=== PATIENT | male | born 1995 | race Caucasian/White ===

== ENCOUNTER 2021-01-18 08:44 | Outpatient (REF) | payer OTHER, SELFPAY ==
[2021-01-18 09:15] LABS: COVID-19 Test Positive (Negative)
== END 2021-01-18 08:45 | disposition home or self-care (01) ==
LOC: HO.LAB 08:44
PROVIDERS: Visit Provider Internal Medicine
DX: Z20.822 Contact with and (suspected) exposure to COVID-19 (principal)
CPT/HCPCS: 36415; 87635; C9803

== ENCOUNTER 2021-02-01 14:24 | Outpatient (REF) | payer OTHER, SELFPAY | END 2021-02-01 14:25 | disposition home or self-care (01) | LOC: HO.LAB 14:24 | PROVIDERS: Visit Provider Internal Medicine | DX: Z20.822 Contact with and (suspected) exposure to COVID-19 (principal) | CPT/HCPCS: C9803; U0003; U0005 ==

== ENCOUNTER 2021-05-10 11:05 | Outpatient (REF) | payer OTHER, SELFPAY ==
[2021-05-10 11:30] LABS: COVID-19 Test Negative (Negative)
== END 2021-05-10 11:06 | disposition home or self-care (01) ==
LOC: HO.LAB 11:05
PROVIDERS: Visit Provider Internal Medicine
DX: Z20.822 Contact with and (suspected) exposure to COVID-19 (principal)
CPT/HCPCS: 36415; 87635; C9803

== ENCOUNTER 2021-08-30 10:04 | Outpatient (REF) | payer SELFPAY ==
[2021-08-30 10:29] LABS: COVID-19 Test Negative (Negative)
== END 2021-08-30 10:05 | disposition home or self-care (01) ==
LOC: HO.LAB 10:04
PROVIDERS: Visit Provider Internal Medicine
DX: Z20.822 Contact with and (suspected) exposure to COVID-19 (principal)
CPT/HCPCS: 36415; 87635; C9803

== ENCOUNTER 2025-03-27 15:34 | Emergency (ER) | payer OTHER, SELFPAY ==
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
[2025-03-27 16:17] VITALS: BP 140/96; PULSE 102; RESP 16; TEMP 36.3; O2SAT 99; BMI 43.0
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
[2025-03-27 16:51] LABS: MANUAL DIFF FLAG NO
[2025-03-27 16:53] LABS: Hematocrit 46.8 % (42.0-52.0); Hemoglobin 16.3 g/dl (14.0-18.0); Imm Gran Abs Auto 0.06 X10*3/uL (0.00-0.03); Imm Gran Pct Auto 0.6 % (0.0-0.4); Lymphocytes Absolute Auto 1.0 X10*3/uL (1.2-4.9); Mean Corpuscular HGB Conc 34.8 g/dl (31.0-36.0); Mean Corpuscular Hemoglobin 30.4 pg (27.0-33.0); Mean Corpuscular Volume 87.2 fL (80.0-98.0); NRBC Abs Auto 0.000 X10*3/uL (0.0-0.012); NRBC Pct Auto 0.0 /100WBC (0.0-0.2); Platelet Count 282 X10*3/uL (160-400); Red Blood Count 5.37 X10*6/uL (4.60-5.80); White Blood Count 9.5 X10*3/uL (4.8-10.8)
[2025-03-27] MEDS: Lidocaine HCl 4 % Topical 50 ML SOLUTION 1 APPL TOPICAL (16:53)
[2025-03-27] MEDS: Diphth,Pertus(ACell),Tet Adult 0.5 ML SYRINGE IM (16:53)
--- OUTSIDE RECORDS SUMMARY | 2025-03-27 17:03 | XMS_ITS | Clinical Summary ---
Author Organization [facility] Address [address] [place] [address] Care Team Providers Care Mapper Name Role Phone Neo Pina MD Primary Care Pr ovider Allergies Active Allergy Reactions Criticality Noted Date Comments Amoxicillin 12/05/2020 Nut - Unspecified 12/05/2020 walnuts Medications ergocalciferol (VITAMIN D-2) 1,250 mcg (50,000 unit) capsule Take 1 Capsule by mouth once a week. 06/21/2024 Active Active Problems Problem Noted Date Diagnosed Date Morbid obesity with BMI of 4 5.0-49.9, adult ([facility] V24, [facility] V28) 09/08/2024 Venous insufficiency 06/07/2024 Overview (09/08/2024): Clinically significant reflux in both legs on venous ultrasound Elevated alkaline phosphatase level 05/27/2024 Stasis dermatitis of both legs 04/26/2024 Encounters Date Type Department Care Team Description 02/03/2025 Telephone Adult Medicine [address] [phone] Neo Pina MD Headache; Fatigue from Last 3 Months Surgical History Surgery Date Site/Laterality Comments OTHER SURGICAL HISTORY PROCEDURE: DENIES PREVIOUS SURGERY Medical History Medical History Date Comments Adhd DX:ADHD Migraine headache DX:Migraine he adache Other seasonal allergic rhinitis DX:Other seasonal allergic rhinitis Family History Medical History Relation Name Comments Bipolar disorder Father Other: PTSD Father Diabetes Mother Hypertension Mother Other: venous insufficiency Mother Seizures Mother Prostate cancer Other Breast cancer Neg Hx Colon cancer Neg Hx Relation Name Status Comments Father Alive Mother Alive Other maternal uncle Social History Tobacco Use Types Packs/Day Years Used Date Smoking Tobacco: Former Smokeless Tobacco: Former Alcohol Use Standard Drinks/Week Comments Yes 0 (1 standard drink = 0.6 oz pur e alcohol) Sex and Gender Information Value Date Recorded Sex Assigned at Not on file Legal Sex Male 12:37 PM EST Gender Identity Not on file Sexual Orientation Not on file Obstetrics History Last Filed Vital Signs Vital Sign Reading Time Taken Comments Blood Pressure 130/84 04/26/2024 4:44 PM EDT Pulse 90 04/26/2024 4:44 PM EDT Temperature - - Respiratory Rate - - Oxygen Saturation - - Inhaled Oxygen Concentration - - Weight 141 kg (310 lb) 04/26/2024 4:44 PM EDT Height 176.5 cm (5' 9.5 ) 04/26/2024 4:44 PM EDT Body Mass Index 45.12 04/26/2024 4:44 PM EDT Plan of Treatment Upcoming Encounters Date Type Department Care Team (Late st Contact Info) Description 09/02/2025 3:00 PM EST Office Visit Adult Medicine [address] [phone] Neo Pina MD [address] [place] [id number] Health Maintenance Due Date Last Done Comments DTaP,Tdap,and Td Vaccines (1 - Tdap) 2016 Hepatitis B Vaccines (1 of 3 - 19+ 3-dose series) 2016 COVID-19 Vaccine ( - 2023-2 5 season) 2024 Depression Screening 06/30/2024 HIV Screening 06/30/2024 Hepatitis C Screening 06/30/2024 Social Influencers of Health Screening 06/30/2024 Influenza Vaccine (#1) 2025 Cholesterol Screening (Lipid Panel) 05/21/2029 05/21/2024, 05/21/2024 HIB Vaccines Aged Out No longer eligi ble based on patient's age to complete this topic HPV Vaccines Aged Out No longer eligi ble based on patient's age to complete this topic Hepatitis A Vaccines Aged Out No long er eligible based on patient's age to complete this topic IPV Vaccines Aged Out No longer eligi ble based on patient's age to complete this topic MMR Vaccines Aged Out No longer eligi ble based on patient's age to complete this topic Meningococcal ACWY Vaccine Aged Out N o longer eligible based on patient's age to complete this topic Meningococcal B Vaccine Aged Out No l onger eligible based on patient's age to complete this topic Pneumococcal Vaccine: Pediatrics (0 to 5 Years) and At-Risk Patients (6 to 64 Years) Aged Out No longer eligible b ased on patient's age to complete this topic RSV Immunization Patients Under 20 months Aged Out No longer eligible b ased on patient's age to complete this topic Varicella Vaccines Aged Out No longer eligible based on patient's age to complete this topic Procedures Procedure Name Priority Date/Time Associated Diagnosis Comments LIPID PANEL Routine 05/21/2024 from Last 3 Months or Most Recently Relevant to Health Maintenance Results * Lipid panel (05/21/2024) LDL/HDL Ratio 3 0 - 4 Triglycerides 106 0 - 150 mg/dL Cholesterol 164 0 - 200 mg/dL HDL 50 >=40 mg/dL LDL Cholesterol 93 0 - 100 mg/dL Blood Venous blood specimen / Unknown [facility] Provider LAB BLOOD ORDERABLES Sona l Result from Last 3 Months or Most Recently Relevant to Health Maintenance Insurance [facility] Care Teams Mapper Relationship Specialty Start Date End Date Neo Pina, MD [facility] - General 02/19/24
[2025-03-27 17:06] LABS: Alanine Aminotransferase 39 U/L (0-40); Albumin Level 4.9 g/dL (3.5-5.0); Alkaline Phosphatase 117 U/L (39-117); Anion Gap 13 (12-20); Aspartate Amino Transferase 33 U/L (5-37); Blood Urea Nitrogen 12 mg/dL (9-16); Calcium 9.5 mg/dL (8.4-10.2); Carbon Dioxide 25 mmol/L (22-29); Chloride 109 mmol/L (96-108); Creatinine Clr Calc Pharmacy 137.6; Estimated Glomerular Filt Rate > 60; Potassium 4.0 mmol/L (3.3-5.1); Sodium 143 mmol/L (135-145); Total Protein 7.6 g/dL (6.5-8.0)
[2025-03-27 17:27] VITALS: BP 140/96; PULSE 102; RESP 16; TEMP 36.3; O2SAT 99
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
[2025-03-27] MEDS: iohexoL 350 MG/ML 100 ML INFUS..BTL 85 ML IV (17:51)
[2025-03-27 20:05] VITALS: BP 171/111; PULSE 104; RESP 18; TEMP 36.5; O2SAT 97
--- NOTE | 2025-03-27 20:24 | PC.NURSE ---
RN was getting pt ready for discharge. PTs BP was noted to be 171/111. RN informed provider Noemi MILLER stated pt still OK for discharge.
[2025-03-27 20:43] VITALS: BP 171/111; PULSE 104; RESP 18; TEMP 36.5; O2SAT 97
== END 2025-03-27 20:44 | disposition home or self-care (01) ==
PROVIDERS: Emergency Provider Emergency Medicine
DX: S20.213A Contusion of bilateral front wall of thorax, initial encounter (principal); S20.313A Abrasion of bilateral front wall of thorax, initial encounter; S60.311A Abrasion of right thumb, initial encounter; S50.812A Abrasion of left forearm, initial encounter; R10.2 Pelvic and perineal pain; M79.641 Pain in right hand; V28.49XA Other motorcycle driver injured in noncollision transport accident in traffic accident, initial encounter; Y93.9 Activity, unspecified; Y92.410 Unspecified street and highway as the place of occurrence of the external cause; Y99.8 Other external cause status; Z23 Encounter for immunization
CPT/HCPCS: 36415; 71260; 73130; 74177; 80053; 85025; 90471; 90715; 96374; 99284; J1885; Q9967

== ENCOUNTER → 2025-03-27 16:25 | Outpatient (BNV) | payer OTHER, SELFPAY | PROVIDERS: Emergency Provider Emergency Medicine; Visit Provider Specialist | DX: K76.0 Fatty (change of) liver, not elsewhere classified (principal); M54.6 Pain in thoracic spine; M79.641 Pain in right hand; Z04.3 Encounter for examination and observation following other accident | CPT/HCPCS: 71260; 73130; 74177 ==